=== PATIENT | male | born 1960 | race Caucasian/White ===

== ENCOUNTER 2021-12-08 02:25 | Emergency (ER) | payer BC ==
[2021-12-08] MEDS ORDERED: Morphine 2 MG/ML SYRINGE IVPUSH ONE (03:03)
[2021-12-08] MEDS ORDERED: Lactated Ringers 1,000 ML IV SCH (03:15)
[2021-12-08] MEDS ORDERED: Acetaminophen/HYDROcodone 325-5 MG Tab PO ONE (04:29)
== END 2021-12-08 05:00 | disposition home or self-care (01) ==
LOC: JD.ED 02:25
DX: N20.0 Calculus of kidney (principal); I10 Essential (primary) hypertension; Z79.899 Other long term (current) drug therapy
CPT/HCPCS: 36415; 74176; 80053; 81001; 85025; 96374; 99284; A9270; J2270; J7120